=== PATIENT | female | born 2000 | race Caucasian/White ===

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

== ENCOUNTER 2021-06-06 16:17 | Emergency (ER) | payer OTHER, SELFPAY ==
[2021-06-06 16:24] VITALS: BP 130/60; PULSE 94; RESP 16; TEMP 36.9; O2SAT 98
--- NOTE | 2021-06-06 16:25 | ED.URI ---
HPI - URI/Sore Throat General Chief Complaint: Upper Respiratory Infection Stated Complaint: sore throat congestion ear clog Time Seen by Provider: 06/06/21 16:20 Source: patient and RN notes reviewed History of Present Illness HPI Narrative: Patient is a 21-year-old female who presents the urgent care with complaints of sore throat, congestion, bilateral ear pain and postnasal drainage. Patient states that she has strep all the time . Patient denies any fever, chills, nausea, vomiting. States her symptoms started 2 days ago. Denies of any known contact with Covid or strep. Patient has been taking Sudafed, Benadryl and ibuprofen. No other acute complaints. No acute distress noted. Patient aware of the plan of care. Some parts of this dictation were generated by voice recognition software and may contain typographical and/or grammatical inaccuracies. Related Data Home Medications Medication Instructions Recorded Confirmed etonogestrel-ethinyl estradiol 1 vag ring VAGINAL ONCE 10/31/20 06/06/21 [NuvaRing] Allergies Allergy/AdvReac Type Severity Reaction Status Date / Time No Known Allergies Allergy Verified 06/06/21 16:29 Review of Systems Review of Systems: CONSTITUTIONAL: Denies fever, chills, or sweats. EYES: Denies visual changes, redness, or discharge. ENT: Reports of postnasal drainage, sinus congestion, sore throat, bilateral otalgia CARDIOVASCULAR: Denies chest pain, palpitations, or edema. RESPIRATORY: Denies cough or dyspnea. GASTROINTESTINAL: Denies abdominal pain, nausea, vomiting, or diarrhea. GENITOURINARY: Denies dysuria or hematuria. SKIN: Denies rash or itching. MUSCULOSKELETAL: Denies back pain, joint pain, or myalgia. NEUROLOGIC: Denies headache, numbness, or weakness. All other systems reviewed are negative, except as documented in HPI. [facility] Past Medical History Medical History (Updated 06/06/21 @ 16:47 by NARENDRA Sanderson) Allergies Obese Surgical History Surgical History (Updated 10/31/20 @ 12:10 by NARENDRA Ng) No significant past surgical history Family History Family History (Updated 10/31/20 @ 12:11 by NARENDRA Ng) Father Diabetes mellitus Mother Alive and well Grandparent Diabetes mellitus Social History Social History (Updated 10/31/20 @ 12:12 by NARENDRA Ng) Smoking status: Never smoker Tobacco type: cigarettes Second hand tobacco smoke exposure: No Alcohol intake: never Substance use: never Gender identity (if verbalized by the patient): Female Comments At the time of my signature, I reviewed and agree with the nursing past medical, surgical, social, and family history. There is no relevant family history pertinent to the patient complaint. Exam Narrative: GENERAL: This is a well-nourished, well-developed patient, in no apparent distress. HEAD: normocephalic, atraumatic. Mild frontal sinus tenderness EYES: PERRL. Sclera clear/white. Vision is grossly intact. EARS: External ears normal, auditory canals clear and without drainage, mild fluid noted behind bilateral TMs without otitis. TMs normal without perforation. Hearing grossly intact. NOSE: External nose normal with no obvious nasal discharge, bilateral erythemic nares with clear to yellow rhinorrhea. THROAT: Mucous membranes moist. Mild to moderate bilateral tonsillar edema without exudate. Moderate postnasal drainage NECK: Neck supple, mild bilateral submandibular lymphadenopathy, masses or thyromegaly. CARDIOVASCULAR: Regular rate and rhythm without murmurs, gallops, or rubs. RESPIRATORY: Clear to auscultation. Breath sounds equal bilaterally. No wheezes, rales, or rhonchi. SKIN: warm, intact with no suspicious lesions or rash, good texture and turgor. NEURO: awake, alert, and oriented to person, place and time. There were no obvious focal neurologic abnormalities. EXTREMITIES: No clubbing, cyanosis, or edema. Course Vital Signs
== END 2021-06-06 16:55 | disposition home or self-care (01) ==
PROVIDERS: Emergency Provider Nurse Practitioner Family; PCP Pediatrics
DX: J03.90 Acute tonsillitis, unspecified (principal); J32.9 Chronic sinusitis, unspecified; E66.9 Obesity, unspecified
CPT/HCPCS: 87081; 87880; 99213; G0463

== ENCOUNTER 2021-09-12 11:49 | Emergency (ER) | payer OTHER, SELFPAY ==
--- NOTE | 2021-09-12 11:53 | ED.URI ---
HPI - URI/Sore Throat General Chief Complaint: Upper Respiratory Infection Stated Complaint: sore throat Time Seen by Provider: 09/12/21 11:53 Source: patient and RN notes reviewed History of Present Illness HPI Narrative: Patient is a 21-year-old female who presents the urgent care with complaints of a sore throat since . Patient states that it went away on Monday and came back yesterday with a headache/migraine. Patient states that she took Sudafed and Excedrin. Patient denies of any fever, nausea, vomiting. States that she has had some nasal congestion and postnasal drainage. No other acute complaints. No acute distress noted. Patient aware of the plan of care. Some parts of this dictation were generated by voice recognition software and may contain typographical and/or grammatical inaccuracies. Related Data Home Medications Medication Instructions Recorded Confirmed etonogestrel-ethinyl estradiol 1 vag ring VAGINAL ONCE 10/31/20 09/12/21 [NuvaRing] Allergies Allergy/AdvReac Type Severity Reaction Status Date / Time No Known Allergies Allergy Verified 09/12/21 12:05 Review of Systems Review of Systems: CONSTITUTIONAL: Denies fever, chills, or sweats. EYES: Denies visual changes, redness, or discharge. ENT: Denies rhinorrhea, congestion, otalgia. Reports of sore throat CARDIOVASCULAR: Denies chest pain, palpitations, or edema. RESPIRATORY: Denies cough or dyspnea. GASTROINTESTINAL: Denies abdominal pain, nausea, vomiting, or diarrhea. GENITOURINARY: Denies dysuria or hematuria. SKIN: Denies rash or itching. MUSCULOSKELETAL: Denies back pain, joint pain, or myalgia. NEUROLOGIC: Denies headache, numbness, or weakness. All other systems reviewed are negative, except as documented in HPI. [facility] Past Medical History Medical History (Updated 09/12/21 @ 12:15 by NARENDRA Sanderson) Allergies Obese Surgical History Surgical History (Updated 10/31/20 @ 12:10 by NARENDRA Ng) No significant past surgical history Family History Family History (Updated 10/31/20 @ 12:11 by NARENDRA Ng) Father Diabetes mellitus Mother Alive and well Grandparent Diabetes mellitus Social History Social History (Updated 10/31/20 @ 12:12 by JACKELINE Ng Smoking status: Never smoker Tobacco type: cigarettes Second hand tobacco smoke exposure: No Alcohol intake: never Substance use: never Gender identity (if verbalized by the patient): Female Comments At the time of my signature, I reviewed and agree with the nursing past medical, surgical, social, and family history. There is no relevant family history pertinent to the patient complaint. Exam Narrative: GENERAL: This is a well-nourished, well-developed patient, in no apparent distress. HEAD: normocephalic, atraumatic. EYES: PERRL. Sclera clear/white. Vision is grossly intact. EARS: External ears normal, auditory canals clear and without drainage, TMs normal without perforation. Hearing grossly intact. NOSE: External nose normal with no obvious nasal discharge, nares without redness, no rhinorrhea. THROAT: Mucous membranes moist. Moderate erythema noted posterior oropharynx with moderate bilateral tonsillar edema and bilateral exudate NECK: Neck supple, non-tender bilateral submandibular lymphadenopathy CARDIOVASCULAR: Regular rate and rhythm without murmurs, gallops, or rubs. RESPIRATORY: Clear to auscultation. Breath sounds equal bilaterally. No wheezes, rales, or rhonchi. SKIN: warm, intact with no suspicious lesions or rash, good texture and turgor. NEURO: awake, alert, and oriented to person, place and time. There were no obvious focal neurologic abnormalities. EXTREMITIES: No clubbing, cyanosis, or edema. Course Course Level of Care: Express Care Visit Vital Signs Vital signs: Vital Signs Temperature 97.8 F 09/12/21 11:54 Pulse Rate 97 09/12/21 11:54 Respiratory Rate 20
[2021-09-12 11:54] VITALS: BP 123/67; PULSE 97; RESP 20; TEMP 36.6; O2SAT 98
== END 2021-09-12 12:20 | disposition home or self-care (01) ==
PROVIDERS: Emergency Provider Nurse Practitioner Family; PCP Pediatrics
DX: J02.0 Streptococcal pharyngitis (principal)
CPT/HCPCS: 87880; 99213; G0463

== ENCOUNTER 2023-08-10 17:27 | Emergency (ER) | payer OTHER, SELFPAY ==
[2023-08-10 17:29] VITALS: BP 149/77; PULSE 92; RESP 20; TEMP 36.1; O2SAT 100
--- NOTE | 2023-08-10 18:01 | ED.GENADULT ---
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 Patient reports she started her normal menstrual cycle last Monday. She uses a NuvaRing for control and states she normally only has 1-2 day cycles. She states her cycle has persisted since last week. It has intermittently heavy with intermittent clots. She tried contacting her OBGYN office but has not heard back yet. She is concerned she may be miscarrying. She notes she had unprotected sexual intercourse at the end of June at the beginning of her new NuvaRing cycle. She did take a test last week at home which was negative. Patient denies significant abdominal pain, pelvic pain, nausea, vomiting, dizziness, lightheadedness, shortness breath, weakness. Related Data Home Medications Medication Instructions Recorded Confirmed etonogestrel 0.12 mg-ethinyl 1 vag ring vaginal ONCE 10/31/20 09/12/21 estradiol 0.015 mg/24 hr vaginal ring (NuvaRing) Allergies Allergy/AdvReac Type Severity Reaction Status Date / Time No Known Allergies Allergy Verified 09/12/21 12:05 Review of Systems Review of Systems: CONSTITUTIONAL: Denies fever, chills, or sweats. GASTROINTESTINAL: Denies abdominal pain, nausea, vomiting, or diarrhea. GENITOURINARY: See HPI. NEUROLOGIC: See HPI. All systems reviewed & are unremarkable except as noted in HPI and below [facility] Past Medical History Medical History Allergies Obese Surgical History Surgical History No significant past surgical history Family History Family History Father Diabetes mellitus Mother Alive and well Grandparent Diabetes mellitus Social History Social History Smoking status: Never smoker Tobacco type: cigarettes Second hand tobacco smoke exposure: No Alcohol intake: never Substance use: never Living arrangements: with family Occupation/Education: unemployed Gender identity (if verbalized by the patient): Female Exam Narrative: GENERAL: Well appearing, morbidly obese with BMI 44.9, non-toxic, in no acute distress. HEAD: Normocephalic, atraumatic. RESPIRATORY: Airway patent, respirations nonlabored. Clear to auscultation bilaterally, no rales, rhonchi, wheezing. CARDIOVASCULAR: Regular rate and rhythm. ABDOMINAL: Soft, no significant tenderness throughout abdomen, nondistended. Normoactive BS. PELVIC: Normal external genitalia. Mild amount of dark red vaginal bleeding in vault. No evidence of hemorrhage or pooling of fluid. Difficult to visualize cervix due to body habitus. No significant clots noted. MUSCULOSKELETAL: Moves all extremities. No gross deformities. SKIN: Warm, dry, normal color. NEURO: A&O X3. Speech clear. Steady gait. PSYCHIATRIC: Appropriate mood and affect. Normal interaction. Course Vital Signs Vital signs: Vital Signs Temperature 97.0 F L 08/10/23 17:29 Pulse Rate 92 08/10/23 17:29 Respiratory Rate 20 08/10/23 17:29 Blood Pressure 149/77 H 08/10/23 17:29 Pulse Oximetry 100 08/10/23 17:29 Oxygen Delivery Room Air 08/10/23 17:29 Temperature 97.0 F L 08/10/23 17:29 Pulse Rate 92 08/10/23 17:29 Respiratory Rate 20 08/10/23 17:29 Blood Pressure 149/77 H 08/10/23 17:29 Pulse Oximetry 100 08/10/23 17:29 Oxygen Delivery Room Air 08/10/23 17:29 Medical Decision Making MDM Narrative Medical decision making narrative: Urine test here negative. UA with evidence of blood
--- NOTE | 2023-08-10 18:30 | PC.NURSE ---
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
[2023-08-10 18:34] LABS: Basophils Percent Auto 0.3 % (0.2-1.2); Eosinophils Absolute Auto 0.2 K/mm3 (0-0.3); Eosinophils Percent Auto 1.4 % (0-4.4); Hematocrit 43.9 % (37.0-47.0); Hemoglobin 14.6 g/dL (12.0-15.0); Immature Granulocyte Absolute 0.02 K/mm3 (0.00-0.031); Immature Granulocyte Percent A 0.2 % (0-0.5); Lymphocytes Absolute Auto 2.75 K/mm3 (0.9-3.2); Lymphocytes Percent Auto 25.1 % (18.3-44.2); Mean Corpuscular HGB Conc 33.3 g/dl (32-36); Mean Corpuscular Hemoglobin 28.1 pg (26-34); Mean Corpuscular Volume 84.6 fl (80-100); Monocytes Absolute Auto 0.6 K/mm3 (0.1-0.6); Monocytes Percent Auto 5.5 % (2.6-8.5); Neutrophils Absolute Auto 7.4 K/mm3 (1.3-6.7); Neutrophils Percent Auto 67.5 % (45.5-73.1); Platelet Count Result 313 k/mm3 (150-375); Red Blood Count 5.19 M/mm3 (4.2-5.4); Red Cell Distribution Width 12.8 % (11.5-14.5); White Blood Count 10.9 K/mm3 (4.5-10.0)
[2023-08-10 18:52] LABS: Appearance Urine Cloudy (Clear); Bilirubin Urine Negative (Negative); Blood Urine 3+ (Negative); Color Urine Dark Yellow (Yellow); Glucose Urine UA Negative (Negative); Ketones Urine Trace mg/dL (Negative); Leukocyte Esterase Ur Negative LEU/UL (Negative); Nitrate Urine Negative (Negative); Protein Urine 1+ mg/dL (Negative); Specific Grav Ur 1.031 (1.001-1.035); pH Urine 5.5 (5.0-9.0)
[2023-08-10 19:06] LABS: Add Urine Microscopic? YES
[2023-08-10 19:07] LABS: Bacteria Urine Trace /hpf; Mucus Urine Few /lpf
[2023-08-10 19:08] LABS: Squamous Epithelial Cell Urine Few /hpf (Few); WBC Urine 0-3 /hpf (0-3)
== END 2023-08-10 19:18 | disposition home or self-care (01) ==
PROVIDERS: Emergency Provider Physician Assistant; PCP Pediatrics
DX: N92.0 Excessive and frequent menstruation with regular cycle (principal); E66.9 Obesity, unspecified; Z68.41 Body mass index [BMI] 40.0-44.9, adult
CPT/HCPCS: 36415; 81001; 81025; 85025; 99283

== ENCOUNTER 2024-04-23 12:10 | Emergency (ER) | payer OTHER, SELFPAY ==
--- NOTE | ~2024-04-23 | XR_ITS ---
EXAMINATION: XR foot LT min 3V DATE: 04/23/2024 12:41 INDICATION: Left foot injury and pain. TECHNIQUE: 4 views of left foot were obtained. COMPARISON: None. FINDINGS: Alignment is normal. No fracture. There is mild osteoarthritis of first metatarsophalangeal joint. IMPRESSION: 1. No fracture. Reviewed, dictated and finalized at location A. IMPRESSION: 1. No fracture.
[2024-04-23 12:20] VITALS: BP 132/63; PULSE 77; RESP 16; TEMP 36.8; O2SAT 99
--- NOTE | 2024-04-23 12:25 | ED.LOWEXIN ---
HPI - Extremity Injury (Lower) General Chief Complaint: Extremity Injury, Lower Stated Complaint: Left Foot Injury Source: patient Mode of arrival: ambulatory Limitations: no limitations History of Present Illness HPI Narrative: 23 y/o female presented for c/o left foot pain and decreased range of motion after an injury one week ago. States she dropped an 80lb heater onto the left foot, which resulted in bruising and swelling. She was able to walk on it. States the bruising and swelling is improving but she is unable to plantarflex due to the pain. Has taken an occasional ibuprofen. Denies deformity, numbness, tingling or weakness. Related Data Home Medications Medication Instructions Recorded Confirmed etonogestrel 0.12 mg-ethinyl 1 vag ring vaginal ONCE 10/31/20 09/12/21 estradiol 0.015 mg/24 hr vaginal ring (NuvaRing) Allergies Allergy/AdvReac Type Severity Reaction Status Date / Time No Known Allergies Allergy Verified 09/12/21 12:05 Review of Systems Review of Systems: CONSTITUTIONAL: Denies body aches, fever, chills CARDIOVASCULAR: Denies chest pain, palpitations, or edema. RESPIRATORY: Denies cough or dyspnea. SKIN: reports bruising left foot MUSCULOSKELETAL: reports left foot pain NEUROLOGIC: Denies headache, numbness, tingling, or weakness. All systems reviewed & are unremarkable except as noted in HPI and below PMFSH Past Medical History Medical History Allergies Obese Surgical History Surgical History No significant past surgical history Family History Family History Father Diabetes mellitus Mother Alive and well Grandparent Diabetes mellitus Social History Social History Smoking status: Never smoker Tobacco type: cigarettes Second hand tobacco smoke exposure: No Alcohol intake: never Substance use: never Living arrangements: with family Occupation/Education: unemployed Gender identity (if verbalized by the patient): Female Comments At time of signature, I have reviewed and agree with nursing past medical, surgical, social and family history unless otherwise noted. Please see nursing chart for further information. There is no relevant family history pertinent to the presenting complaint Exam Narrative: GENERAL: Well-appearing CHEST: Speaks in full sentences. No respiratory distress. HEART: Regular rate and rhythm. Normal and equal peripheral pulses. EXTREMITIES: Left foot has normal strength and sensation, Decreased Range of motion with plantar flexion due to pain with movement. Ecchymosis to distal metatarsals, lateral and medial aspects of the foot. point tenderness to abrasion over 3rd metatarsal. swelling to left foot noted. No skin tenting or obvious deformity; alignment normal, pulse palpable and equal bilaterally, skin warm, dry, pink. Capillary refill less than 3 seconds. SKIN: Warm, dry, no rash. NEURO: Alert and oriented x3. PSYCH: Normal mood and affect Course Course Emergency Course: Patient is aware of diagnosis, understands and agrees to treatment plan. Anticipatory guidance given. Patient agrees to follow-up as directed and is aware of reasons to seek care at the emergency department. Portions of this record may have been created with voice recognition software Level of Care: Express Care Visit Vital Signs Vital signs: Vital Signs Temperature 98.2 F 04/23/24 12:20 Pulse Rate 77 04/23/24 12:20 Respiratory Rate 16 04/23/24 12:20 Blood Pressure 132/63 04/23/24 12:20 Pulse Oximetry 99 04/23/24 12:20 Oxygen Delivery Room Air 04/23/24 12:20 Temperature 98.2 F 04/23/24 12:20 Pulse Rate 77 04/23/24 12:20 Respiratory Rate 16 04/23/24 12:20 Blood Pressure 132/63
== END 2024-04-23 13:18 | disposition home or self-care (01) ==
PROVIDERS: Emergency Provider Nurse Practitioner Family; PCP Pediatrics
DX: S90.32XA Contusion of left foot, initial encounter (principal); W20.8XXA Other cause of strike by thrown, projected or falling object, initial encounter; E66.9 Obesity, unspecified; Z68.42 Body mass index [BMI] 45.0-49.9, adult
CPT/HCPCS: 73630; 99213; G0463

== ENCOUNTER 2024-04-26 18:04 | Emergency (ER) | payer OTHER, SELFPAY ==
--- NOTE | 2024-04-26 18:07 | ED.FEMALEGU ---
HPI - Female Genitourinary General Chief complaint: Urogenital-Female Stated complaint: Urinary Problems Time Seen by Provider: 04/26/24 18:35 Source: patient and RN notes reviewed Mode of arrival: ambulatory Limitations: no limitations History of Present Illness HPI Narrative: 23-year-old female presents concern for burning with urination, genital itching. She denies frequency, urgency, back pain, abdominal pain, nausea, vomiting, chills, fever. She denies abnormal vaginal discharge or concern for STDs MD elicited complaint: dysuria and genital itching Related Data Home Medications Medication Instructions Recorded Confirmed etonogestrel 0.12 mg-ethinyl 1 vag ring vaginal ONCE 10/31/20 09/12/21 estradiol 0.015 mg/24 hr vaginal ring (NuvaRing) Allergies Allergy/AdvReac Type Severity Reaction Status Date / Time No Known Allergies Allergy Verified 04/26/24 18:06 Review of Systems Review of Systems: CONSTITUTIONAL: Denies malaise, chills, sweats, or fever. CARDIOVASCULAR: Denies chest pain, palpitations, or edema. RESPIRATORY: Denies cough or dyspnea. GASTROINTESTINAL: Denies abdominal pain, nausea, vomiting, diarrhea GENITOURINARY: Reports dysuria, vaginal itching. Denies frequency, urgency, suprapubic pressure. Denies flank pain or hematuria. SKIN: Denies rash or itching. MUSCULOSKELETAL: Denies back pain or myalgia. All systems reviewed & are unremarkable except as noted in HPI and below PMFSH Past Medical History Medical History Allergies Obese Surgical History Surgical History No significant past surgical history Family History Family History Father Diabetes mellitus Mother Alive and well Grandparent Diabetes mellitus Social History Social History Smoking status: Never smoker Tobacco type: cigarettes Second hand tobacco smoke exposure: No Alcohol intake: never Substance use: never Living arrangements: with family Occupation/Education: unemployed Gender identity (if verbalized by the patient): Female Comments At time of signature, agree with nursing past medical, surgical, social and family history. There is no relevant family history pertinent to the presenting complaint Exam Narrative: GENERAL: Well-appearing, well-nourished, and in no acute distress. HEAD: Normocephalic. EYES: PERRLA, conjunctivae clear. NECK: Supple. No lymphadenopathy CHEST: Clear to auscultation. No respiratory distress. HEART: Regular rate and rhythm. ABDOMEN: Soft, nontender upon palpation, nondistended, normal active bowel sounds, no palpable or pulsatile masses, no guarding. No CVA tenderness SKIN: Warm, dry, no rash. NEURO: Alert and oriented x3. PSYCH: Normal mood and affect Course Course Emergency Course: Patient is aware of diagnosis, understands and agrees to treatment plan. Anticipatory guidance given. Patient agrees to follow-up as directed and is aware of reasons to seek care at the emergency department. Portions of this record may have been created with voice recognition software Level of Care: Express Care Visit Vital Signs Vital signs: Vital Signs Temperature 98.4 F 04/26/24 18:08 Pulse Rate 80 04/26/24 18:08 Respiratory Rate 16 04/26/24 18:08 Blood Pressure 148/66 H 04/26/24 18:08 Pulse Oximetry 99 04/26/24 18:08 Oxygen Delivery Room Air 04/26/24 18:08 Temperature 98.4 F 04/26/24 18:08 Pulse Rate 80 04/26/24 18:08 Respiratory Rate 16 04/26/24 18:08 Blood Pressure 148/66 H 04/26/24 18:08 Pulse Oximetry 99 04/26/24 18:08 Oxygen Delivery Room Air 04/26/24 18:08 Reviewed. MDM - Female Genitourinary MDM Narrative Medical decision making narrative: Exam findings and UA show no acute
[2024-04-26 18:08] VITALS: BP 148/66; PULSE 80; RESP 16; TEMP 36.9; O2SAT 99
--- NOTE | 2024-04-26 18:15 | PC.NURSE ---
in br to obtain ua spec.
[2024-04-26 18:30] LABS: EDUAAPPEAR Clear; EDUABILI Negative (Negative); EDUABLOOD Trace (Negative); EDUACOLOR1 Yellow; EDUAGLUCOSE Negative (Negative); EDUAKETONE Negative (Negative); EDUALEUKO Trace (Negative); EDUANITRATE Negative (Negative); EDUAPROTEIN Negative (Negative)
== END 2024-04-26 18:42 | disposition home or self-care (01) ==
PROVIDERS: Emergency Provider Nurse Practitioner; PCP Pediatrics
DX: N89.8 Other specified noninflammatory disorders of vagina (principal); E66.9 Obesity, unspecified; Z68.42 Body mass index [BMI] 45.0-49.9, adult
CPT/HCPCS: 81003; 87086; 99213; G0463

== ENCOUNTER 2024-04-28 15:31 | Emergency (ER) | payer OTHER, SELFPAY ==
[2024-04-28 15:41] VITALS: BP 145/86; PULSE 64; RESP 15; TEMP 36.4; O2SAT 100
--- NOTE | 2024-04-28 17:51 | ED.GENADULT ---
HPI - General Adult General Chief complaint: FAMILY THERAPIST Stated complaint: wants STD testing Time Seen by Provider: 04/28/24 17:51 History of Present Illness HPI narrative: Patient is a 23-year-old female presents to the ER with concerns of an STD. She reports she started having vaginal itching on evening. She reports she went to urgent care and they told her she did not have a UTI so they gave her medication for yeast infection. Patient reports she has a new sexual partner starting 2-3 weeks ago. She had sexual intercourse with her previous partner 3-4 weeks ago. Patient reports she has yellow brownish discharge and new vaginal lesions. She reports both her recent sexual partners declined any symptoms. Her medical history includes prediabetic and hypertension. Related Data Home Medications Medication Instructions Recorded Confirmed etonogestrel 0.12 mg-ethinyl 1 vag ring vaginal ONCE 10/31/20 09/12/21 estradiol 0.015 mg/24 hr vaginal ring (NuvaRing) Allergies Allergy/AdvReac Type Severity Reaction Status Date / Time Unable to Assess Allergy Verified 04/28/24 15:32 Review of Systems Review of Systems: All systems reviewed & are unremarkable except as noted in HPI and below PMFSH Past Medical History Medical History Allergies Obese Surgical History Surgical History No significant past surgical history Family History Family History Father Diabetes mellitus Mother Alive and well Grandparent Diabetes mellitus Social History Social History Smoking status: Never smoker Tobacco type: cigarettes Second hand tobacco smoke exposure: No Alcohol intake: never Substance use: never Living arrangements: with family Occupation/Education: unemployed Gender identity (if verbalized by the patient): Female Exam Narrative: GENERAL: Well appearing, well-nourished, non-toxic, in no acute distress. NECK: Supple. No adenopathy, no masses. RESPIRATORY: Airway patent, respirations nonlabored. Clear to auscultation bilaterally, no rales, rhonchi, wheezing. CARDIOVASCULAR: Regular rate and rhythm without murmurs, rubs, or gallops. Peripheral pulses 2+ and equal bilaterally. ABDOMINAL: Soft, mildly tender lower quadrants, nondistended, no hepatosplenomegaly. Normoactive BS. MUSCULOSKELETAL: Moves all extremities. Strength/ROM intact without gross deformities. SKIN: Warm, dry. Multiple herpetic lesions on the labia majora, some are open and draining. Surrounding area reddened, swollen and irritated. GI/: Moderate amount thick yellow/green discharge in patient's vaginal canal. NEURO: A&O X3. Speech clear. Cranial nerves II-XII grossly intact. No ataxic movements. PSYCHIATRIC: Appropriate mood and affect. Normal interaction. Course Vital Signs Vital signs: Vital Signs Temperature 36.4 C 04/28/24 15:41 Pulse Rate 64 04/28/24 15:41 Respiratory Rate 15 04/28/24 15:41 Blood Pressure 145/86 H 04/28/24 15:41 Pulse Oximetry 100 04/28/24 15:41 Oxygen Delivery Room Air 04/28/24 15:41 Temperature 36.4 C 04/28/24 15:41 Pulse Rate 64 04/28/24 15:41 Respiratory Rate 15 04/28/24 15:41 Blood Pressure 145/86 H 04/28/24 15:41 Pulse Oximetry 100 04/28/24 15:41 Oxygen Delivery Room Air 04/28/24 15:41 Medical Decision Making MDM Narrative Medical decision making narrative: Patient is a 23-year-old female presents to the ER with concerns of an STD. She reports she started having vaginal itching on evening. She reports she went to urgent care and they told her she did not have a UTI so they gave her medication for yeast infection. Patient reports she has a new sexual partner starting 2-3 we
[2024-04-28 20:09] LABS: Add Urine Microscopic? YES; Appearance Urine Clear (Clear); Bacteria Urine Rare /hpf; Bilirubin Urine Negative (Negative); Blood Urine Negative (Negative); Color Urine Yellow (Yellow); Glucose Urine UA Negative (Negative); Ketones Urine Negative (Negative); Leukocyte Esterase Ur 2+ LEU/UL (Negative); Nitrate Urine Negative (Negative); Non Pathogenic Casts 0-2; Protein Urine Negative (Negative); RBC Urine 0-2 /hpf (0-2); Squamous Epithelial Cell Urine Occasional /hpf (Few); WBC Urine 21-50 /hpf (0-3); pH Urine 5.5 (5.0-9.0)
[2024-04-28 20:12] LABS: Pregnancy On Board Control Positive; Urine Pregnancy Test Negative
[2024-04-28] MEDS: metroNIDAZOLE 500 MG TABLET PO (21:12)
[2024-04-28] MEDS: ACYCLOVIR 400 MG TABLET 800 MG PO (21:12)
[2024-04-28] MEDS: DOXYCYCLINE HYCLATE 100 MG TABLET PO (21:12)
[2024-04-28] MEDS: cefTRIAXone 1 GM VIAL 0.5 GM IM (21:14)
[2024-04-28] MEDS: LIDOCAINE/PRILOCAINE CREAM 2.5-2.5% TUBE 1 EACH TOPICAL (21:46)
[2024-04-28] MEDS: LIDOCAINE HCL 1% LOCAL INJ 10 ML VIAL 2.1 ML XX (21:47)
[2024-04-28 21:55] LABS: Trichomonas Vag PCR NOT DETECTED (NOT DETECTE)
[2024-04-28 21:59] VITALS: BP 144/81; PULSE 72; RESP 16; O2SAT 95
[2024-04-28 22:19] LABS: Chlamydia trachomatis NOT DETECTED (NOT DETECTE); Neisseria gonorrhoeae PCR NOT DETECTED (NOT DETECTE)
== END 2024-04-28 22:01 | disposition home or self-care (01) ==
PROVIDERS: Emergency Provider Registered Nurse; PCP Pediatrics
DX: A60.04 Herpesviral vulvovaginitis (principal); N39.0 Urinary tract infection, site not specified; I10 Essential (primary) hypertension; E66.9 Obesity, unspecified; Z68.42 Body mass index [BMI] 45.0-49.9, adult; R73.03 Prediabetes
CPT/HCPCS: 81001; 81025; 87086; 87255; 87491; 87591; 87661; 96372; 99284; A9270; J0696; J2003

== ENCOUNTER 2025-05-01 11:32 | Emergency (ER) | payer OTHER, SELFPAY ==
--- NOTE | 2025-05-01 11:36 | ED.URI ---
HPI - URI/Sore Throat General Chief Complaint: Upper Respiratory Infection Stated Complaint: Cough/Sore Throat Time Seen by Provider: 05/01/25 11:52 Source: patient and RN notes reviewed Mode of arrival: ambulatory Limitations: no limitations History of Present Illness HPI Narrative: 24-year-old female presents with concern for 2 day history of productive cough, hoarse voice. Reports body aches, denies fever, aches, chills, sweats. Has taken zycam and mucinex. MD elicited complaint: cough Related Data Home Medications ?Medication ?Instructions ?Recorded ?Confirmed ?Last Taken ?Type etonogestrel 0.12 mg-ethinyl 1 vag ring vaginal ONCE 10/31/20 09/12/21 Unknown History estradiol 0.015 mg/24 hr vaginal ring (NuvaRing) Allergies Allergy/AdvReac Type Severity Reaction Status Date / Time fruit Allergy Severe Swelling Uncoded 05/01/25 11:55 of Lip/Tongue/Throat Review of Systems Review of Systems: CONSTITUTIONAL: Denies malaise, chills, sweats, or fever. EYES: Denies visual changes, redness, or discharge. ENT: Reports rhinorrhea, congestion, otalgia and sore throat. CARDIOVASCULAR: Denies chest pain, palpitations, or edema. RESPIRATORY: Reports productive cough. Denies dyspnea. GASTROINTESTINAL: Denies abdominal pain, nausea, vomiting, diarrhea SKIN: Denies rash or itching. MUSCULOSKELETAL: Denies myalgia. NEUROLOGIC: Denies headache. All systems reviewed & are unremarkable except as noted in HPI and below PMFSH Past Medical History Medical History Allergies Obese Surgical History Surgical History No significant past surgical history Family History Family History Father Diabetes mellitus Mother Alive and well Grandparent Diabetes mellitus Social History Social History Smoking status: Never smoker Tobacco type: cigarettes Second hand tobacco smoke exposure: No Alcohol intake: never Substance use: never Living arrangements: with family Occupation/Education: unemployed Gender identity (if verbalized by the patient): Female Comments At time of signature, agree with nursing past medical, surgical, social and family history. There is no relevant family history pertinent to the presenting complaint Exam Narrative: GENERAL: Well-appearing, well-nourished, and in no acute distress. HEAD: Normocephalic EYES: PERRLA, conjunctivae clear ENT: Nares clear, turbinates edematous and erythematous, clear discharge. Mucous membranes moist. TM pearly osuna with dull light reflex bilaterally; no tragal tenderness. Oropharynx not erythematous without lesions. Tonsils not enlarged and without exudate, no drooling, no hoarseness, no trismus, uvula midline. NECK: Supple. No lymphadenopathy CHEST: Clear to auscultation, breath sounds equal. No wheezing, rhonchi, rales, or stridor. No respiratory distress, speaks in full sentences. HEART: Regular rate and rhythm. No murmur heard. SKIN: Warm, dry, no rash. NEURO: Alert and oriented x3. PSYCH: Normal mood and affect Course Course Emergency Course: Patient is aware of diagnosis, understands and agrees to treatment plan. Anticipatory guidance given. Patient agrees to follow-up as directed and is aware of reasons to seek care at the emergency department. Portions of this record may have been created with voice recognition software Level of Care: Express Care Visit Vital Signs Vital signs: Reviewed. MDM - URI/Sore Throat MDM Narrative Medical decision making narrative: Differential diagnosis considered: Segura virus, strep pharyngitis, allergic rhinitis, upper respiratory tract infection, sinusitis, rhinosinusitis, nasopharyngitis. viral pharyngitis, otitis media, otitis externa, pneumonia, bronchitis, viral cough syndrome, viral syndrome, and influenza. Exam findings show no acute concerns or changes; patient is non-toxic appearing and is in no distress. Patient is appropriate for outpatient treatment and follow-up. Lab Data Attestation: I reviewed the patient's lab results. Critical Care Time Critical Care Time Critical Care Time: No Discharge Plan Discharge Clinical Impression: Upper respiratory infection Patient Disposition: Home Condition: Stable Instructions: Upper Respiratory Infection (ED) Additional Instructions: Your rapid strep swab was negative today at [facility]. A throat culture will be sent to the laboratory for further testing. If the test is positive, you will receive a phone call within 48 hours and an appropriate antibiotic will be initiated at that time. Your symptoms are likely due to a viral illness, which is not treated with antibiotics. Viral symptoms can be present for up to a few weeks. -Alternate Tylenol and Motrin per package directions for fever or pain. -Antihistamine medication such as Benadryl at night and Zyrtec during the day can help improve symptoms. -Eat and drink things that are easy to swallow, like tea or soup, or popsicles to suck on. -Oral rinses such as: Salt water gargles and/or may use topical anesthetic (eg. Chloraseptic spray) or lozenges to relieve dryness or throat pain). -Frequent hand washing or hand foreman/project manager is one of the best ways to prevent spread of infection. -Follow up with primary care provider in 2-3 days if condition is not improving; or seek ER visit if you have trouble breathing, cannot drink enough fluids, have muffled voice, difficulty opening your mouth, or severe swelling. Patient Language: Swedish Prescriptions: New dextromethorphan-guaifenesin [Mucinex DM] 60-1,200 mg tablet extended release 12 hr 1 tablet PO Q12H Qty: 12 0RF methylprednisolone [Medrol (Brandon)] 4 mg tablets,dose pack See Rx Instructions .ROUTE .COMPLEX Qty: 21 0RF Rx Instructions: orally per package directions No Action fluconazole 150 mg tablet 150 mg PO Q48H 3 Days Qty: 2 0RF Rx Instructions: take one dose now, and a second dose if symptoms remain in 48 hours etonogestrel-ethinyl estradiol [NuvaRing] 0.12-0.015 mg/24 hr Ring 1 vag ring VAGINAL ONCE doxycycline monohydrate 100 mg tablet 100 mg PO BID Qty: 14 0RF metronidazole 500 mg tablet 500 mg PO Q12H Qty: 14 0RF ondansetron 4 mg tablet,disintegrating 4 mg PO Q8H PRN (Reason: nausea and vomiting) Qty: 10 0RF acyclovir 800 mg tablet 800 mg PO TID Qty: 6 0RF Follow-up/Referrals: UNKNOWN,DOCTOR [Non-Staff] Time of Disposition: 12:13
[2025-05-01 11:44] VITALS: BP 125/56; PULSE 76; RESP 18; TEMP 36.4; O2SAT 99
[2025-05-01 12:24] LABS: EDSTREPNEGPOS1 Negative (Negative)
--- OUTSIDE RECORDS SUMMARY | 2025-05-01 13:36 | XMS_ITS | Clinical Summary ---
Author Organization [facility] [place] Address [address] [place] [address] Care Team Providers Care Bull Gang Supervisor Name Role Phone Kesha Liu MD Primary Care Pro vider Allergies No known active allergies Medications oxybutynin XL (DITROPAN-XL) 5 mg 24 hr tabletIndications :Female incontinence Take 1 tablet (5 mg total) by mouth daily 30 tablet 2 06/06/2019 Active cyclobenzaprine (FLEXERIL) 5 mg tablet 11/29/2020 Active NuvaRing 0.12-0.015 mg/24 hr vaginal ring INSERT ONE IN VAGINA ONCE A MONTH 11/19/2020 Active ibuprofen (ADVIL,MOTRIN) 800 mg tablet 12/06/2020 Activ e valACYclovir (VALTREX) 500 mg tablet Take 1 tablet (500 mg total) by mouth daily 30 tablet 11 04/17/2025 04/17/20 26 Active Active Problems Problem Noted Date Diagnosed Date Adjustment disorder with depressed mood 10/20/19 16 Encounters Date Type Department Care Team Description 04/25/2025 Results Follow-Up [facility] [address] [place] [address] Yulisa Patrick, Pap with reflex to High Risk HPV and Genotyping (Cytology Component) 04/17/2025 2:04 PM CDT - 04/17/2025 11:59 PM CDT Hospital Encounter [facility] [address] [place] [id number] Screening for malignant neoplasm of cervix; Screen for sexually transmitted diseases Discharge Disposition: Discharge to home or self care 04/17/2025 1:30 PM CDT Office Visit [facility] [address] [place] [address] Yulisa Patrick DO Encounter for annual routine gynecological examination (Primary Dx); Screen for sexually transmitted diseases; Screening for malignant neoplasm of cervix; HSV (herpes simplex virus) anogenital infection 04/14/2025 Telephone [facility] [address] [place] [address] Yulisa Patrick DO Appointment Reminder Call from Last 3 Months Medical History Medical History Date Comments Urinary incontinence Family History Medical History Relation Name Comments Diabetes Father Relation Name Status Comments Father Social History Tobacco Use Types Packs/Day Years Used Date Smoking Tobacco: Never Smokeless Tobacco: Never Alcohol Use Standard Drinks/Week Comments Never 0 (1 standard drink = 0.6 oz pur e alcohol) AUDIT-C Answer Date Recorded Frequency of Alcohol Consumption Never 06/06/2019 Average Number of Drinks Not on file 019 Frequency of Binge Drinking Not on file 05/18 Comments No Sex and Gender Information Value Date Recorded Sex Assigned at Not on file Legal Sex Female 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 INSPECTOR Gender Identity Not on file Sexual Orientation Not on file Obstetrics History Para Term AB IAB SAB Ectopic Multiple Livin g Live Births 0 0 0 0 0 0 0 0 0 0 0 Last Filed Vital Signs Vital Sign Reading Time Taken Comments Blood Pressure 138/80 04/17/2025 1:31 PM CDT Pulse 71 12/17/2020 10:45 AM CDT Temperature 36.7 C (98.1 F) 06/06/2019 1:20 PM SOURCE INSPECTOR Respiratory Rate - - Oxygen Saturation - - Inhaled Oxygen Concentration - - Weight 144.7 kg (319 lb) 04/17/2025 1:31 PM CDT Height 175.3 cm (5' 9) 04/17/2025 1:31 PM CDT Body Mass Index 47.11 04/17/2025 1:31 PM CDT Plan of Treatment Health Maintenance Due Date Last Done Comments Depression Screening 2001 Hepatitis C Screening 2001 Meningococcal B Vaccine (1 o f 2 - Standard) 2017 DTaP/Tdap/Td Vaccine (7 - Td or Tdap) 08/05/2021 08/05/2011, 03/05/2007, 10/17/2002, Additional history exists Influenza Vaccine (#1) 2025 9, 06/28/2017, 06/16/2015, Additional history exists Cervical Cancer Screening 04/17/2026 04/17/2025 Chlamydia and Gonorrhea (GC/ CT) Screening 04/17/2026 04/17/2025 Regular Well Visit/Exam 18-64 04/17/2026 04/17/2025 Hepatitis B Screening Completed 2001 , 2001, 2001, Additional history exists Pneumococcal vaccine <65 Completed 003, 01/08/2002, 2001, Additional history exists Varicella Vaccines Completed 03/05/2007, 06/06/2002 HPV Vaccines Completed 06/16/2015, 04/16, 03/04/2013 Procedures Procedure Name Priority Date/Time Associated Diagnosis Comments THINPREP PROCESSING (MOLECULAR COMPONENT) Routine 04/17/2025 3:19 PM CDT Screening for malignant neoplasm of cervix TRICHOMONAS VAGINALIS PCR Routine 04/17/2025 3:19 PM CDT Screen for sexually transmitted diseases N. GONORRHOEAE/C. TRACHOMATIS AMPLIFICATION Routine 04/17/2025 3:19 PM CDT Screen for sexually transmitted diseases PAP WITH REFLEX TO HIGH RISK HPV Routine 04/17/2025 11:39 AM CDT Screening for malignant neoplasm of cervix from Last 3 Months Results * ThinPrep processing (Molecular component) (04/17/2025 3:19 PM CDT) ThinPrep processing (Molecular component) Specimen received for processing. [facility] Comment:Testing performed by : [facility], [address], [place]., [address] Endocervical 04/17/2025 3:19 PM CDT 04/18/2025 5:41 PM CDT Yulisa Patrick DO LAB BODY FLUIDS AND STO OLS ORDERABLES Final Result Performing Organization Address [facility] Co de Phone Number AMBER BERMEO [address] Department of [employer] [place], [place] [phone] BJ * N. gonorrhoeae/C. trachomatis Amplification Thin prep-Endocervical (04/17/2025 3:19 PM CDT) C. trachomatis Not Detected [facility] Comment:Testing performed by : [facility], [address] [place] [address]., [address] N. gonorrhoeae Not Detected [facility] Comment: Interpretive Data This assay detects Chlamydia trachomatis and Neisseria gonorrhoeae by nucleic acid amplification testing (NAAT). This assay has been cleared by the [place] Food and Drug administration. The performance characteristics of this test have been verified by the [facility] Molecular Infectious Disease laboratory. The performance characteristics of this test have not been evaluated in individuals less than 14 years of age. Current Interpretive Data was last revised on 2023. Testing performed by: [facility], [address] [place] [address]., [address] Thin prep-Endocervica l 04/17/2025 3:19 PM CDT 04/18/2025 5:41 PM CDT Yulisa Patrick DO LAB MICROBIOLOGY - GENE RAL ORDERABLES Final Result Performing Organization Address City/[facility]/ZIP Co de Phone Number MYAHDEEPIKA BERMEO [address] [place] [address] [facility] * Trichomonas vaginalis PCR Thin prep-Endocervical (04/17/2025 3:19 PM CDT) Trichomonas DNA Not Detected [facility] Comment: Interpretive Data This assay detects Trichomonas vaginalis by nucleic acid amplification testing (NAAT). This assay has been cleared by the [place] Food and Drug administration. The performance characteristics of this test have been verified by the [facility] Molecular Infectious Disease laboratory. The performance of this test has not been evaluated in individuals less than 18 years of age. Current Interpretive Data was last revised on 2023. Testing performed by: [facility], [address] [place]., [address] Thin prep-Endocervica l 04/17/2025 3:19 PM CDT 04/18/2025 5:41 PM CDT Yulisa Patrick DO LAB MICROBIOLOGY - GENE RAL ORDERABLES Final Result AMBER [address] [place] [address] BJ * Pap with reflex to High Risk HPV and Genotyping (Cytology Component) (04/17/2025 11:39 AM CDT) Thin prep (Pap test) 04/17/2025 11:39 AM CDT 04/17/2025 11:39 AM CDT Narrative PATHOLOGY CH - 04/23/2025 1:06 PM CDT [facility] Department of Pathology [address] [place], [place] [id number] Final Report Note to Patients: This report may contain a detailed description of human tissue sent by a health care provider to the laboratory for pathologic evaluation. The content of this report is essential for diagnosis and may provide important critical findings. This information may be unfamiliar to patients to review without a medical professional present. It is advised that the patient review this report in the presence of a health care provider who can answer questions and explain the details. Patient Name: ELDA HUFF Address: [address] [place] [address] 2001 Gender: F : 2000 (Age: 24) Service: Location: Hospital #: [id number] Patient Type: [facility] SPECIMEN Taken: 04/17/2025 Received: 04/17/2025 Accessioned:: 04/18/2025 Reported: 04/23/2025 Physician(s): Josefina Adair D.O. Diagnosis: SOURCE OF SPECIMEN Imaged Thinprep Pap Test w/ Reflex HPV - Marketing Programs Specialist Cytologic Material: STATEMENT OF ADEQUACY - Satisfactory for evaluation; endocervical/transformation zone component present GENERAL CATEGORIZATION: - Negative for intraepithelial lesion or malignancy ISAIAS Louis(ASCP) Report Electronically Reviewed and Signed Out By ISAIAS Louis(ASCP) 04/23/2025 13:06:54Specimen(s) Received: A: Imaged Thinprep Pap Test w/ Reflex HPV - Marketing Programs Specialist Cytologic Material Clinical History: Last Menstrual Period: 03/21/25 The Pap test is a screening test used to aid in the detection of cervical cancer and its precursors. It should not be the sole means by which malignant and premalignant lesions are diagnosed. Both false negative and false positive results may occur. It also has poor sensitivity for the detection of endometrial lesions and should not be used to evaluate suspected endometrial abnormalities. For these reasons it is most important to obtain Pap tests at regular intervals. The performance characteristics of some immunohistochemical stains, fluorescence in-situ hybridization tests and immunophenotyping by flow cytometry cited in this report (if any) were determined by the Surgical Pathology Department at [facility] as part of an ongoing clinical quality rn program and in compliance with federally mandated regulations drawn from the Clinical Laboratory Improvement Act of 1988 (CLIA '88). Some of these tests rely on the use of analyte specific reagents and are subject to specific labeling requirements by the [place] Food and Drug Administration. Such diagnostic tests may only be performed in a facility that is certified by the Department of Health and Human Services as a high complexity laboratory under CLIA '88. The FDA has determined that such clearance or approval is not necessary. This test is used for clinical purposes. It should not be regarded as investigational or for research. Nevertheless, federal rules concerning the medical use of analyte specific reagents require that the following disclaimer be attached to the report: This test was developed and its performance characteristics determined by the Surgical Pathology Department [facility]. It has not been cleared or approved by the [place]. S. Food and Drug Administration. Yulisa Patrick DO LAB CYTOLOGY ORDERABLES Final Result PATHOLOGY [address] [place] [address] from Last 3 Months Insurance [place] [id number] [facility] CHO[employer] PL[employer] IDPA Care Teams Bull Gang Supervisor Relationship Specialty Start Date End Date Kesha Liu MD PCP - General Pediatrics 05/27/19
--- OUTSIDE RECORDS SUMMARY | 2025-05-01 13:36 | XMS_ITS | Clinical Summary ---
Author Organization [facility] Address [address] [place] [phone] Phone Care Team Providers Care Extension Course Coordinator Name Role Phone Kesha Liu MD Primary Care Provider Allergies No known active allergies Active Problems Problem Noted Date Diagnosed Date Adjustment disorder with depressed mood 10/20/19 16 Social History Tobacco Use Types Packs/Day Years Used Date Smoking Tobacco: Never Tobacco Cessation:Counseling Given: No Alcohol Use Standard Drinks/Week Comments No 0 (1 standard drink = 0.6 oz pur e alcohol) Sexually Active Control Partners Comments Never Comments Unknown Sex and Gender Information Value Date Recorded Sex Assigned at Not on file Legal Sex Female 9:24 AM CDT Gender Identity Not on file Sexual Orientation Not on file Plan of Treatment Health Maintenance Due Date Last Done Comments Hepatitis C Virus (HCV) Screening 2001 TdaP Immunization 2001 Human Papillomavirus (HPV) Immunization (1 - 3-dose series) 2016 Meningococcal B Immunization (1 of 2 - Standard) 2017 Hepatitis B Immunization (1 of 3 - 19+ 3-dose series) 2020 Influenza Immunization (#1) 2025 SARS-COV-2 Immunization ( - season) 2025 Respiratory Syncytial Virus (RSV) Immunization (Adult) (1 - 1-dose 75+ series) 2076 Meningococcal Immunization (ACWY) Aged Out No longer eligible based on patient's age to complete this topic Pneumococcal Immunization Combined Aged Out No longer eligible based on patient's age to complete this topic Rotavirus Immunization Aged Out No lo nger eligible based on patient's age to complete this topic Insurance Care Teams Extension Course Coordinator Relationship Specialty Start Date End Date Kesha Liu MD [address] [place] [address] [place] [address] PCP - General Pediatrics 10/20/15
--- OUTSIDE RECORDS SUMMARY | 2025-05-01 13:36 | XMS_ITS | Encounter Summary ---
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
== END 2025-05-01 12:16 | disposition home or self-care (01) ==
PROVIDERS: Emergency Provider Nurse Practitioner
DX: J06.9 Acute upper respiratory infection, unspecified (principal)
CPT/HCPCS: 87081; 87880; 99213; G0463